=== PATIENT | male | born 1970 | race Caucasian/White ===

== ENCOUNTER 2017-06-13 22:53 | Inpatient (IN) | payer SELFPAY ==
[~2017-06-13] VITALS: Ht 165.1 cm; Wt 86.7 kg
--- NOTE | ~2017-06-13 | PR ---
[place], [place] PROGRESS NOTE [id number] UNIT #: [id number] ROOM: 512 DOCTOR: VAL SEXTON MD BIRTHDATE: [birth year] DOS: 06/16/2017 SUBJECTIVE: The patient is doing fine without any complaints. NG tube was discontinued. OBJECTIVE: VITAL SIGNS: Graphic trend shows blood pressure 153/86, pulse of 85, respirations 20, temperature 99. LUNGS: Clear. HEART: Regular. ABDOMEN: Obese, bowel sounds hypoactive, nontender. EXTREMITIES: Without any edema. LABORATORY DATA: WBC count is now normal at 9.8. BUN and creatinine normal. Potassium 3.4. Echocardiogram showed normal LV function. Carotid Doppler shows no evidence of carotid disease. ASSESSMENT AND PLAN: 1. The patient with gastroenteritis, resulting in small bowel ileus. Clinically much improved. Awaiting for the acute abdominal series. If it comes back normal, the patient should be able to go home today. 2. Syncopal episode from vasovagal syncope. This has been worked up with a negative CT of the head and cervical spine, echo and carotid Doppler. 3. Benign hypertension, restart medications. 4. Hypokalemia. Supplementation was given. VAL SEXTON MD CM:PNTRANS [id number] VAL SEXTON MD 06/16/17 1044 interface
--- NOTE | ~2017-06-13 | CON ---
[place], [place] REPORT OF CONSULTATION NAME: KAREN DYER UNIT #: [id number] ROOM: 512 DOCTOR: DINA MARIATATIANNA BIRTHDATE: [birth year] DOS: 06/15/2017 HISTORY OF PRESENT ILLNESS: This is a 46-year-old who was presented with chief complaint of one day of diarrhea, abdominal pain, feeling chills and not feeling well, then he had to call off and check with the hospital and was found to have white blood cell of 21,000 with H and H of 16 and 47. INR of 1.0. Rapid Troponin was normal. Chest x-ray was obtained. No cardiologic pathology. CT scan of the abdomen and pelvis was done. Small-bowel obstruction was suggested with ____ sign. His lactic acid was checked 1.2. Comprehensive metabolic panel, electrolyte, liver function tests normal. Acute abdominal series today was done, no acute cardiopulmonary persistent findings of ileus or small-bowel obstruction was suggested. He has not been having nausea, vomiting; only one day of diarrhea. PAST MEDICAL HISTORY: Hypertension. PAST SURGICAL HISTORY: Minor operation elbow repair. ALLERGIES: No known medications. SOCIAL HISTORY: Nonsmoker, nonalcohol consumer. MEDICATION AT HOME: Lisinopril 20 mg daily and multivitamins. REVIEW OF SYSTEMS: HEENT: Denies double vision, blurred vision. RESPIRATORY: Denies shortness of breath. CARDIOVASCULAR: Denies chest pain. DIGESTIVE SYSTEM: Diarrhea, abdominal pain x 1 day. PHYSICAL EXAMINATION: VITAL SIGNS: Stable. HEENT: Head normocephalic, nontraumatic. Mouth and buccal mucosa benign. NECK: Supple, no thyromegaly, no cervical lymphadenopathy. CHEST: Symmetric anatomy, equal expansion. No wheeze, no rhonchi. HEART: Normal sinus rhythm, no gallop, no murmur. ABDOMEN: Soft. No hepato-organomegaly. Bowel sounds present. There is no evidence of rebound effect. EXTREMITIES: No cyanosis, no pedal edema. NEUROLOGIC: Alert, oriented to time, place, person. IMPRESSION: Viral gastroenteritis, possible ileus secondary to above, unlikely to be a small-bowel obstruction, but possibility is still on differential, history of hypertension. Therefore, we are going to obtain a KUB of the abdomen tomorrow. We are going to continue with IV hydration, n.p.o. status. Basic metabolic, CBC. Assessment of the abdomen. Surgical consultation, and hopefully, his ileus is going to resolve and we may be able to feed if all is well by tomorrow. [place], [place] REPORT OF CONSULTATION NAME: KAREN DYER UNIT #: [id number] ROOM: 512 DOCTOR: TATIANNA ARROYO MD BIRTHDATE: [birth year] TATIANNA ARROYO MD CM:CONSTR:REPORT OF CONSULTATION 1840 06/15/17 3898 interface
--- NOTE | ~2017-06-13 | WRIGHTHP ---
[place], [place] PATIENT HISTORY AND PHYSICAL EXAM [id number] UNIT #: [id number] ROOM: 512 DOCTOR: VAL SEXTON MD BIRTHDATE: [birth year] DOS: 06/14/2017 HISTORY OF PRESENT ILLNESS: The patient is 46 years old. The patient states that he has not felt good for the last couple of days. He thought he was getting a virus. Yesterday morning, he woke up, tried to go to work and he just did not feel good, so came back inside his house, started having multiple episodes of nausea and multiple episodes of diarrhea. He lost count of the episodes. In the evening, he was again in the bathroom trying to have a bowel movement when he passed out on the floor. His family heard a loud bang and tried to come into the bathroom, it was difficult to open the door but his fiancee was able to get inside. He had fallen and hit his head and developed a small laceration. He came around in less than 30 seconds. The ambulance was called. Ambulance was taking quite a long time, so the family decided to take him to the Emergency Room on their own. He has had multiple diarrheal bowel movements and some nausea and emesis since admission and he has had again these same symptoms this morning. He denies having any chest pains, palpitations, not have any fever or chills. Does not have any blood in his stools. Most of the diarrhea is brownish watery stools with some mucus mixed in it. The patient says he did not eat anything other than some cuate mann and a cup of soup yesterday morning. By then, was already 6. On Sunday evening, he ate leftovers from [employer], which included ham and potatoes. His family members also ate the same food and they were not sick. PAST SURGICAL HISTORY: Significant for benign hypertension. MEDICATIONS: Lisinopril 5 mg daily. SOCIAL HISTORY: Nonsmoker. Does not use any alcohol. He lives with his fiancee, has one at 25 years. His parents, mother is healthy. Father has history of heart disease. Has two siblings who are both healthy. PHYSICAL EXAMINATION: GENERAL: He is awake and alert and oriented, appears quite tired and weak. Pressure is 138/76, pulse of 95, respirations 18, temperature 98.4. LUNGS: Diminished breath sounds. HEART: Regular. ABDOMEN: Obese, soft, some diffuse tenderness present, worse in the left lower quadrant. EXTREMITIES: Without any edema. ASSESSMENT AND PLAN: 1. The patient who presents with severe abdominal pain, nausea and emesis, elevated white cell count of 21,000 as well as left lower quadrant abdominal pain, rule out diverticulitis. The patient is already on Levaquin, add Flagyl. IV fluids to be ordered and the patient to get a CT of the abdomen and pelvis with consultation with Dr. Ardon. 2. Continued nausea and emesis, possibly some component of acute gastritis. We will add Zofran and Protonix. 3. Vasovagal syncope, most likely from his continued diarrheal episodes and hypotension. Pressures are within normal limits right now, we will hold off on [place], [place] PATIENT HISTORY AND PHYSICAL EXAM NAME: KAREN DYER UNIT #: [id number] ROOM: [facility] DOCTOR: VAL SEXTON MD BIRTHDATE: [birth year] his antihypertensives. Carotid Doppler and echocardiogram were ordered. 4. Benign hypertension, controlled. Hold off on his medications for right now. VAL SEXTON MD CM:HISPHYS:PATIENT HISTORY AND PHYSICAL EXAMINATION 0836 [id number] VAL SEXTON MD 06/14/17 0856 interface
--- NOTE | ~2017-06-13 | PR ---
[place], [place] PROGRESS NOTE NAME: [facility] DYER [facility] [id number] UNIT #: [id number] ROOM: 512 DOCTOR: VAL SEXTON MD BIRTHDATE: [birth year] DOS: SUBJECTIVE: The patient says that he feels good. He tolerated the clear liquid without any problems. He did not have any more nausea and emesis. He did have a fairly good bowel movement this morning. OBJECTIVE: VITAL SIGNS: Graphic trends shows blood pressure 132/80, pulse of 82, respirations 20, temperature 98.2. LUNGS: Clear. HEART: Regular. ABDOMEN: Obese, soft, nontender with good bowel sounds. EXTREMITIES: Without any edema. ASSESSMENT AND PLAN: 1. Viral gastroenteritis, small bowel ileus, which has resolved clinically. The plan is to discharge him to home. Discussed with Dr. Salvador in detail yesterday. We will increase his diet to regular diet and he should be able to go home today. 2. Hypokalemia. Supplementation was ordered and the levels have come up. White cell count is normal. A few days of Flagyl to be given and the patient will be recommended to have a colonoscopy as an outpatient. VAL SEXTON MD CM:PNTRANS 49 VAL SEXTON MD 06/17/17 105 interface
--- NOTE | ~2017-06-13 | PR ---
[place], [place] PROGRESS NOTE NAME: [facility] DYER [facility] [id number] UNIT #: [id number] ROOM: 512 DOCTOR: VAL SEXTON MD BIRTHDATE: [birth year] DOS: SUBJECTIVE: The patient feels much better. He had the CT scan yesterday morning and it showed small bowel ileus, had an NG tube placed and this morning he feels that his abdomen is much improved. He denies having any nausea, upset stomach feeling or any more diarrhea. OBJECTIVE: VITAL SIGNS: This morning blood pressure is 157/90, pulse of 90, respirations 20, temperature 98.5. LUNGS: Clear. HEART: Regular. ABDOMEN: Obese, soft, nontender. Bowel sounds present. EXTREMITIES: Without any edema. DIAGNOSTIC STUDIES: CT of the abdomen yesterday showed dependent atelectasis, ileus with dilated fluid and air filled small bowel loops, also a renal cyst was seen. ASSESSMENT AND PLAN: 1. Small bowel ileus, most likely from food poisoning and the patient has been kept n.p.o. NG tube was placed and he has done very well clinically. His white cell count has come down to 12.1. Acute abdominal series is pending this morning. If it shows improvement in the ileus, the patient's NG tube can come out and a clear liquid diet can be started. 2. Food poisoning with resultant acute gastritis, on continued medications. Dr. Ardon was consulted. Protonix was added. 3. Benign hypertension. We will restart lisinopril once the patient's n.p.o. status is discontinued. VAL SEXTON MD CM:PNTRANS 0831 1343 VAL SEXTON MD 06/15/17 1343 interface
--- NOTE | ~2017-06-13 | DS ---
[place], [place] DISCHARGE SUMMARY [id number] UNIT #: [id number] ROOM: 512 DOCTOR: VAL SEXTON MD BIRTHDATE: [birth year] DOS: 06/16/2017 DIAGNOSES: 1. Small bowel ileus from viral gastroenteritis. 2. Hypokalemia. 3. Benign hypertension. 4. Vasovagal syncope with fall. HOSPITAL COURSE: The patient is 46-year-old. Please refer to H and P for details. The patient has had multiple diarrheal bowel movements and nausea and emesis. He passed out in the bathroom, was taken to the Emergency Room. A small laceration of his forehead which was not infected. He continued to have nausea, vomiting and diarrhea. He was placed on Levaquin and Flagyl. His white cell count was extremely elevated and low grade fever. After admission, the patient had a consultation with Dr. Ardon. A CT of the abdomen and pelvis was ordered, showed small bowel ileus. At that time, Dr. Salvador was consulted. NG tube was placed with fairly good resolution of his symptoms. His nausea, emesis and diarrhea seem to be subsiding. Echocardiogram showed moderate concentric LVH. Carotid Doppler was negative. Acute abdominal series shows improvement in the ileus. NG tube was later discontinued and the patient has not been started on a diet yet. This morning acute abdominal series is pending, but clinically on exam, the patient looks much improved and has bowel sounds. There is minimal amount of diarrhea, but no nausea or emesis. Once the acute abdominal series is back, if it shows complete resolution of ileus, the plan is to discharge him to home. His white cell count has normalized. He does not have any fever. His potassium is low and Supplementation was ordered. VAL SEXTON MD CM:DISCHARG 1018 40 VAL SEXTON MD 06/16/17 1041 interface
--- NOTE | ~2017-06-13 | EKG ---
[place], [place] ELECTROCARDIOGRAM REPORT NAME: KAREN DYER UNIT #: [id number] ROOM: 512 DOCTOR: EVA MARIA,CHELY BIRTHDATE: [birth year] DOS: 06/14/2017 TIME: 2319 hours. IMPRESSION: 1. Sinus rhythm. 2. Anterior ST elevation, consider acute injury versus ____ localized pericarditis. 3. Normal QT interval. CHELY VELASQUEZ MD CM:EKGRPT:ELECTROCARDIOGRAM REPORT 1359 1620 CHELY VELASQUEZ MD
[2017-06-13 23:11] VITALS: BP 124/80
[2017-06-13 23:34] LABS: BASO # 0.1 10*3/uL (0.0-0.1); BASO % 0.2 % (0.0-1.0); EOS # 0.2 10*3/uL (0.0-0.4); EOS % 1.1 % (1.0-4.0); HEMATOCRIT 47.9 % (42.0-52.0); HEMOGLOBIN 16.2 g/dl (14.0-18.0); LYMPH # 2.1 10*3/uL (1.3-4.4); MEAN CORPUSCULAR HGB 28.4 pg (27.0-31.0); MEAN CORPUSCULAR HGB CONC 33.8 g/dl (33.0-37.0); MEAN PLATELET VOLUME 9.6 fl (9.6-12.3); MONO # 1.3 10*3/uL (0.1-1.0); MONO % 6.1 % (3.0-9.0); NEUT # 17.3 10*3/uL (2.3-7.9); NEUT % 82.2 % (47.0-73.0); PLATELET COUNT AUTOMATED 286 10*3/uL (130-400); RED CELL DISTRI WIDTH 12.4 % (0-14.5); WHITE BLOOD COUNT 21.1 10*3/uL (4.8-10.8)
[2017-06-13 23:42] LABS: ACT PARTIAL THROMBO TIME 22.1 SECONDS (20.8-31.5)
[2017-06-13 23:50] LABS: ALBUMIN 4.4 gm/dl (3.1-4.5); ALKALINE PHOSPHATASE 88 U/L (45-117); BUN 21 mg/dl (7-24); CHLORIDE 100 mmol/L (98-107); CREATININE 1.15 mg/dL (0.70-1.30); POTASSIUM 3.8 mmol/L (3.5-5.1); SGOT/AST 14 IU/L (3-35); SGPT/ALT 34 U/L (12-78); SODIUM 137 mmol/L (136-145); TOTAL PROTEIN 8.4 gm/dL (6.4-8.2)
[2017-06-13 23:51] LABS: TROPONIN I < 0.015 ng/ml (<0.045)
[2017-06-14 00:55] VITALS: BP 149/84
[2017-06-14] MEDS ORDERED: LISINOPRIL5 MG PO (01:52)
[2017-06-14] MEDS ORDERED: MULTIVITAMINS1 EAC5 PO (01:53)
[2017-06-14 06:31] LABS: BASO % 0.2 % (0.0-1.0); EOS # 0.1 10*3/uL (0.0-0.4); EOS % 0.3 % (1.0-4.0); HEMATOCRIT 46.3 % (42.0-52.0); HEMOGLOBIN 15.7 g/dl (14.0-18.0); LYMPH # 1.1 10*3/uL (1.3-4.4); LYMPH % 6.1 % (27.0-41.0); MEAN CELL VOLUME 85.9 fl (80.0-94.0); MEAN CORPUSCULAR HGB 29.1 pg (27.0-31.0); MEAN CORPUSCULAR HGB CONC 33.9 g/dl (33.0-37.0); MEAN PLATELET VOLUME 9.5 fl (9.6-12.3); MONO # 0.8 10*3/uL (0.1-1.0); MONO % 4.4 % (3.0-9.0); NEUT # 16.3 10*3/uL (2.3-7.9); NEUT % 88.5 % (47.0-73.0); PLATELET COUNT AUTOMATED 275 10*3/uL (130-400); RED BLOOD COUNT 5.39 10*6/uL (4.50-5.90); RED CELL DISTRI WIDTH 12.3 % (0-14.5); WHITE BLOOD COUNT 18.4 10*3/uL (4.8-10.8)
[2017-06-14 08:00] VITALS: BP 138/76
[2017-06-14 09:25] LABS: LIPASE 65 U/L (73-393)
[2017-06-14 12:00] VITALS: BP 152/87
[2017-06-14 16:00] VITALS: BP 157/84
[2017-06-14] MEDS ORDERED: LISINOPRIL20 MG PO (16:23)
[2017-06-14 20:00] VITALS: BP 158/91
[2017-06-15] VITALS: BP 157/91
[2017-06-15 06:04] LABS: BASO % 0.3 % (0.0-1.0); EOS # 0.3 10*3/uL (0.0-0.4); EOS % 2.2 % (1.0-4.0); LYMPH # 1.7 10*3/uL (1.3-4.4); LYMPH % 13.6 % (27.0-41.0); MEAN CELL VOLUME 84.4 fl (80.0-94.0); MEAN CORPUSCULAR HGB 27.8 pg (27.0-31.0); MEAN PLATELET VOLUME 9.7 fl (9.6-12.3); MONO # 0.8 10*3/uL (0.1-1.0); MONO % 6.9 % (3.0-9.0); NEUT # 9.3 10*3/uL (2.3-7.9); NEUT % 76.8 % (47.0-73.0); PLATELET COUNT AUTOMATED 257 10*3/uL (130-400); RED BLOOD COUNT 4.74 10*6/uL (4.50-5.90); RED CELL DISTRI WIDTH 12.4 % (0-14.5); WHITE BLOOD COUNT 12.1 10*3/uL (4.8-10.8)
[2017-06-15 06:10] LABS: ALBUMIN 3.2 gm/dl (3.1-4.5); ALKALINE PHOSPHATASE 67 U/L (45-117); BUN 17 mg/dl (7-24); CHLORIDE 105 mmol/L (98-107); CREATININE 0.87 mg/dL (0.70-1.30); POTASSIUM 3.8 mmol/L (3.5-5.1); SGOT/AST 12 IU/L (3-35); SGPT/ALT 24 U/L (12-78); SODIUM 140 mmol/L (136-145); TOTAL PROTEIN 6.5 gm/dL (6.4-8.2)
[2017-06-15 06:21] LABS: HEMOGLOBIN 13.2 g/dl (14.0-18.0)
[2017-06-15 08:00] VITALS: BP 168/84
[2017-06-15 12:00] VITALS: BP 148/82
[2017-06-15 16:00] VITALS: BP 155/81
[2017-06-15 20:00] VITALS: BP 151/86
[2017-06-16] VITALS (7 sets, daily range): BP systolic 135–166; BP diastolic 80–95
[2017-06-16 05:57] LABS: BASO % 0.4 % (0.0-1.0); EOS # 0.4 10*3/uL (0.0-0.4); EOS % 3.6 % (1.0-4.0); HEMATOCRIT 38.9 % (42.0-52.0); HEMOGLOBIN 12.8 g/dl (14.0-18.0); LYMPH # 1.7 10*3/uL (1.3-4.4); MEAN CELL VOLUME 85.3 fl (80.0-94.0); MEAN CORPUSCULAR HGB 28.1 pg (27.0-31.0); MEAN CORPUSCULAR HGB CONC 32.9 g/dl (33.0-37.0); MEAN PLATELET VOLUME 9.5 fl (9.6-12.3); MONO # 0.7 10*3/uL (0.1-1.0); MONO % 7.5 % (3.0-9.0); NEUT % 71.2 % (47.0-73.0); PLATELET COUNT AUTOMATED 234 10*3/uL (130-400); RED BLOOD COUNT 4.56 10*6/uL (4.50-5.90); WHITE BLOOD COUNT 9.8 10*3/uL (4.8-10.8)
[2017-06-16 06:27] LABS: BUN 10 mg/dl (7-24); CHLORIDE 102 mmol/L (98-107); POTASSIUM 3.4 mmol/L (3.5-5.1); SODIUM 139 mmol/L (136-145)
[2017-06-16 06:29] LABS: CREATININE 0.74 mg/dL (0.70-1.30)
[2017-06-16] MEDS ORDERED: FLAGYL500 MG PO (10:11)
[2017-06-16] MEDS ORDERED: ZOFRAN8 M1 PO (10:11)
[2017-06-17] VITALS: BP 131/77
[2017-06-17 06:29] LABS: HEMATOCRIT 36.5 % (42.0-52.0); HEMOGLOBIN 12.4 g/dl (14.0-18.0); MEAN CELL VOLUME 84.5 fl (80.0-94.0); MEAN CORPUSCULAR HGB 28.7 pg (27.0-31.0); MEAN PLATELET VOLUME 9.6 fl (9.6-12.3); PLATELET COUNT AUTOMATED 235 10*3/uL (130-400); RED BLOOD COUNT 4.32 10*6/uL (4.50-5.90); RED CELL DISTRI WIDTH 12.1 % (0-14.5); WHITE BLOOD COUNT 8.1 10*3/uL (4.8-10.8)
[2017-06-17 06:31] LABS: BUN 9 mg/dl (7-24); CHLORIDE 105 mmol/L (98-107); CREATININE 0.72 mg/dL (0.70-1.30); POTASSIUM 4.1 mmol/L (3.5-5.1); SODIUM 143 mmol/L (136-145)
[2017-06-17 07:07] LABS: ATYPICAL LYMPHS 3 % (0-0); PLATELET SUFFICIENCY NORMAL (NORMAL); TOTAL CELLS COUNTED 100 #CELLS
[2017-06-17 08:00] VITALS: BP 132/80
[2017-06-17] MEDS ORDERED: PROTONIX40 MG PO (09:38)
[2017-06-17] MEDS ORDERED: LOMOTIL 2.5-0.1 EACH PO (09:38)
== END 2017-06-17 10:34 | disposition home or self-care (01) | DRG 392 ==
LOC: ED 22:53 → 5E 06-14 00:34 → EDHOLD 06-14 00:34 → 5E 06-14 00:40
PROVIDERS: Internal Medicine; Internal Medicine Gastroenterology; Student in an Organized Health Care Education/Training Program
DX: K29.00 Acute gastritis without bleeding (principal); I95.9 Hypotension, unspecified; K56.7 Ileus, unspecified; E86.0 Dehydration; R55 Syncope and collapse; E87.6 Hypokalemia; I10 Essential (primary) hypertension; E66.9 Obesity, unspecified; A08.4 Viral intestinal infection, unspecified; W18.39XA Other fall on same level, initial encounter; S01.81XA Laceration without foreign body of other part of head, initial encounter; T62.8X1A Toxic effect of other specified noxious substances eaten as food, accidental (unintentional), initial encounter; Y99.8 Other external cause status; Y92.89 Other specified places as the place of occurrence of the external cause; Y93.89 Activity, other specified; Z79.899 Other long term (current) drug therapy

== ENCOUNTER 2018-05-08 18:00 | Emergency (ER) | payer OTHER ==
[~2018-05-08] VITALS: Wt 84.8 kg
--- NOTE | ~2018-05-08 | EKG ---
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
[~2018-05-08 18:00] MED LIST: FLAGYL500 MG PO; LISINOPRIL20 MG PO; LISINOPRIL5 MG PO; LOMOTIL 2.5-0.1 EACH PO; MULTIVITAMINS1 EAC5 PO; PROTONIX40 MG PO; ZOFRAN8 M1 PO
[2018-05-08 18:26] LABS: BASO # 0.1 10*3/uL (0.0-0.1); BASO % 0.4 % (0.0-1.0); EOS # 0.2 10*3/uL (0.0-0.4); EOS % 1.1 % (1.0-4.0); HEMATOCRIT 45.3 % (42.0-52.0); LYMPH # 1.7 10*3/uL (1.3-4.4); LYMPH % 12.2 % (27.0-41.0); MEAN CELL VOLUME 85.8 fl (80.0-94.0); MEAN CORPUSCULAR HGB 28.4 pg (27.0-31.0); MEAN CORPUSCULAR HGB CONC 33.1 g/dl (33.0-37.0); MEAN PLATELET VOLUME 9.5 fl (9.6-12.3); MONO # 0.7 10*3/uL (0.1-1.0); MONO % 5.2 % (3.0-9.0); NEUT # 11.3 10*3/uL (2.3-7.9); NEUT % 80.7 % (47.0-73.0); PLATELET COUNT AUTOMATED 298 10*3/uL (130-400); RED BLOOD COUNT 5.28 10*6/uL (4.50-5.90); RED CELL DISTRI WIDTH 11.9 % (0-14.5)
[2018-05-08 18:35] LABS: INTERNATIONAL NORM RATIO 0.9 (2.0-3.5)
[2018-05-08 18:43] LABS: ALBUMIN 4.2 gm/dl (3.1-4.5); ALKALINE PHOSPHATASE 81 U/L (45-117); BUN 15 mg/dl (7-24); CHLORIDE 100 mmol/L (98-107); CREATININE 0.91 mg/dL (0.70-1.30); LIPASE 136 U/L (73-393); POTASSIUM 3.8 mmol/L (3.5-5.1); SGOT/AST 15 IU/L (3-35); SGPT/ALT 33 U/L (12-78); SODIUM 136 mmol/L (136-145); TOTAL PROTEIN 8.1 gm/dL (6.4-8.2)
[2018-05-08 18:48] LABS: TROPONIN I < 0.015 ng/ml (<0.045)
[2018-05-08] MEDS ORDERED: PENICILLIN-VK500 M1 PO (19:57)
== END 2018-05-08 20:05 | disposition home or self-care (01) ==
LOC: ED 18:00
PROVIDERS: Emergency Medicine
DX: K08.89 Other specified disorders of teeth and supporting structures (principal); R68.84 Jaw pain; I10 Essential (primary) hypertension; R79.1 Abnormal coagulation profile; Z79.899 Other long term (current) drug therapy

== ENCOUNTER 2018-05-12 20:17 | Emergency (ER) | payer OTHER ==
[~2018-05-12] VITALS: Ht 167.6 cm; Wt 84.8 kg
[~2018-05-12 20:17] MED LIST changes: +PENICILLIN-VK500 M1 PO
[2018-05-12 21:40] LABS: BILIRUBIN NEGATIVE (NEGATIVE); BLOOD NEGATIVE (NEGATIVE); CLARITY CLEAR (CLEAR); COLOR YELLOW (YELLOW); GLUCOSE NEGATIVE (NEGATIVE); KETONE NEGATIVE (NEGATIVE); LEUKO ESTERASE NEGATIVE (NEGATIVE); NITRITE NEGATIVE (NEGATIVE); PH 6.5 (5.0-9.0); UROBILINOGEN 0.2 E.U./dl (0.2-1.0)
[2018-05-12 21:52] LABS: BACTERIA 2+; MUCOUS 1+; RBC 0-2 rbc/hpf (0-2)
== END 2018-05-12 23:10 | disposition home or self-care (01) ==
LOC: ED 20:17
PROVIDERS: Student in an Organized Health Care Education/Training Program
DX: K59.00 Constipation, unspecified (principal); R33.9 Retention of urine, unspecified; I10 Essential (primary) hypertension; Z79.899 Other long term (current) drug therapy

== ENCOUNTER → 2018-07-23 | Outpatient (CLI) | payer OTHER | END | disposition home or self-care (01) | LOC: CARD 15:00 | DX: R06.02 Shortness of breath (principal) ==